=== PATIENT | male | born 1995 | race Caucasian/White ===

== ENCOUNTER 2016-07-18 18:19 | Emergency (ER) | payer BC ==
--- NOTE | ~2016-07-18 | ER ---
PATIENT'S NAME: LORRAINE [facility] AGE: 21 Y [address] ROOM: [place] [id number] LOCATION: [facility] ADMIT DATE: 07/18/2016 ER/Outpatient Report DISCHARGE DATE: 07/18/2016 FAMILY PHYSICIAN: PHYSICIAN, NO ATTENDING PHYSICIAN: Vinh Dunbar Time of Patient's Arrival: 1819 hours. Time of Patient's Evaluation: 1825 hours. CHIEF COMPLAINT: Panic attack. HISTORY OF PRESENT ILLNESS: This is a 21-year-old male who presents to the ER, who states he had a panic attack yesterday. His states that he is a fairly anxious person and gets stomach upset and gets very anxious when they headed out of town, but yesterday he had a very severe attack, which they had to drive back to her mother's house and let him lie down for it to get over it. He states he woke up, still not feeling well and then today when he was watching TV, the panic attack returned. He does not know of any new stressors, no recent illnesses. He is having some heart palpitation. He does not particularly say that he has any chest pain, just feels like he is feeling sad and "fearful that he will not return back to normal again." He has no suicidal thoughts. He states it does make him feel short of breath. He denies any other problems at this time. ALLERGIES: PLEASE SEE MEDICATION LIST IN NURSE'S NOTES. MEDICATIONS: Please see medication list in nurse's notes. PAST MEDICAL HISTORY: MRSA when he was in high school on his skin. PAST SURGERIES: None. SOCIAL HISTORY: He does chew tobacco. Denies any drug or alcohol use. REVIEW OF SYSTEMS: A 10-point review of systems was completed and was negative with the exception of those discussed in the HPI. PATIENT'S NAME: LORRAINE [facility] AGE: 21 Y [address] ROOM: [place], [place] [address] LOCATION: [facility] ADMIT DATE: 07/18/2016 ER/Outpatient Report DISCHARGE DATE: 07/18/2016 FAMILY PHYSICIAN: PHYSICIAN, NO ATTENDING PHYSICIAN: Vinh Dunbar PHYSICAL EXAMINATION: VITAL SIGNS: Height 5 feet 11 inches stated, weight 69.0 kg taken, blood pressure is 127/92, pulse 72, respirations 78, temperature 98.1 degrees tympanically, and saturation is 98% on room air. [place] Coma Score is 15. GENERAL: Alert, anxious, 21-year-old, in mild distress. HEENT: Head: Normocephalic. Does display moist mucous membranes. Pupils are equal and reactive to light. NECK: Supple. No lymphadenopathy. LUNGS: Clear auscultation bilaterally. HEART: Regular rate and rhythm. ABDOMEN: Soft, nontender. He has good bowel sounds throughout. No masses were palpated. EXTREMITIES: No clubbing or cyanosis. He does have full range of motion of all limbs. LABORATORY DATA: CBC: White count is 13.9, hemoglobin is 16.8. CMS was unremarkable. Alcohol level is less than 0.010. Acetaminophen level is less than 2.0. CPK is 75, CK-MB is 0.7, and troponin I is less than 0.040. TSH is 1.560. Salicylate is less than 2.8. D-dimer is 0.26. Urine drug screen was negative. Urinalysis negative for any infection. Chest x-ray was negative for any infiltrate. EKG shows early repolarization in the anterolateral leads, sinus rhythm. IMPRESSION: Panic attacks. ASSESSMENT AND PLAN: We did give the patient Ativan here in the emergency room and this greatly improved his symptoms. I am going to dismiss him to home with prescriptions for Ativan and Lexapro to use as directed. I did give him business cards for primary care physicians and I would like them to follow up with them this next week for followup care. The patient and the patient's understand and agree with care. BLUE MUHAMMAD PA-C FOR DO FILI PUENTES/kim /[id number] d: t: 07/20/16 1301, OUTPATIENT REPORT
[2016-07-18 18:55] LABS: BASOPHIL # 0.1 K/uL (0.0-0.2); BASOPHIL % 0.6 %; EOSINOPHIL # 0.2 K/uL (0.0-0.5); EOSINOPHIL % 1.2 %; HEMATOCRIT 48.2 % (37.0-53.0); HEMOGLOBIN 16.8 g/dL (12.0-17.0); IMMATURE GRANULOCYTE % 0.3 %; LYMPHOCYTE # 2.6 K/uL (0.8-4.0); LYMPHOCYTE % 18.4 %; MCH 29.2 pg (27.0-34.0); MCHC 34.9 gm/dL (32.0-36.5); MCV 83.7 fl (83.0-98.0); MONOCYTE # 0.9 K/uL (0.0-1.0); MONOCYTE % 6.4 %; MPV 11.3 fl (9.4-12.4); NEUTROPHIL # (ANC) 10.2 K/uL (1.4-9.0); NEUTROPHIL % 73.1 %; NRBC % 0 /100WBC (0-0.00); PLATELET COUNT 240 K/uL (150-450); RBC 5.76 M/uL (4.00-6.00); RDW-CV 12.4 % (11.9-14.6); WBC 13.9 K/uL (4.0-11.0)
[2016-07-18 19:00] LABS: BILIRUBIN URINE NEGATIVE (NEGATIVE); BLOOD URINE NEGATIVE /UL (NEGATIVE); COLOR URINE YELLOW (YELLOW); GLUCOSE URINE NEGATIVE (NEGATIVE); KETONE URINE 50 mg/dL (NEGATIVE); LEUKOCYTES URINE 25 /UL (NEGATIVE); NITRITE URINE NEGATIVE (NEGATIVE); PROTEIN URINE 15 mg/dL (NEGATIVE); SPEC GRAVITY URINE 1.025 (1.003-1.035); TURBIDITY URINE CLEAR (CLEAR); UROBILINOGEN URINE 1 mg/dL (NORMAL)
[2016-07-18 19:08] LABS: EPITHELIAL URINE NEGATIVE #/HPF (NEGATIVE); RBC URINE NEGATIVE #/HPF (NEGATIVE); WBC URINE 0-2 #/HPF (NEGATIVE)
[2016-07-18 19:09] LABS: BACTERIA URINE MODERATE (NEGATIVE); MUCUS URINE 3+ (NEGATIVE)
[2016-07-18 19:16] LABS: ALBUMIN 4.4 gm/dL (3.5-5.0); ALK PHOS 93 IU/L (33-138); ALT 28 IU/L (12-78); ANION GAP 15.1 (10.0-19.0); AST 20 IU/L (10-40); BLOOD UREA NITROGEN 18 mg/dL (6-24); CALCIUM 9.2 mg/dL (8.5-10.5); CHLORIDE 107 mMol/L (96-110); CO2 24 mMol/L (22-32); CREATININE 1.2 mg/dL (0.6-1.3); ESTIMATED GFR (MDRD EQUATION) > 60; POTASSIUM 4.1 mMol/L (3.7-5.1); SODIUM 142 mMol/L (135-145); TOTAL PROTEIN 8.3 g/dL (6.0-8.4)
[2016-07-18 19:17] LABS: BARBITURATE NEGATIVE (NEGATIVE); COCAINE NEGATIVE (NEGATIVE)
[2016-07-18 19:21] LABS: AMPHETAMINE NEGATIVE (NEGATIVE); OPIATES NEGATIVE (NEGATIVE)
[2016-07-18 19:27] LABS: CPK 75 IU/L (35-332)
== END 2016-07-18 19:51 | disposition disaster alternative care site (69) ==
LOC: GMED 18:19
PROVIDERS: Emergency Medicine
DX: F41.0 Panic disorder [episodic paroxysmal anxiety] (principal); F17.220 Nicotine dependence, chewing tobacco, uncomplicated; Z86.14 Personal history of Methicillin resistant Staphylococcus aureus infection; Z88.1 Allergy status to other antibiotic agents
CPT/HCPCS: G0480